=== PATIENT | male | born 1995 | race African-American/Black ===

== ENCOUNTER 2019-01-14 18:31 | Emergency (ER) | payer BC ==
[~2019-01-14] VITALS: Ht 188 cm; Wt 87.1 kg
[2019-01-14] MEDS ORDERED: NKM (18:42)
[2019-01-14 18:50] VITALS: BP 132/79
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
--- NOTE | 2019-01-14 19:15 | NUR ---
ED Nurse Note: Received. Right wrist without deformity; N/V intact distally.
[2019-01-14] MEDS ORDERED: IBUPROFEN600 MG ORAL (19:40)
--- NOTE | 2019-01-14 19:40 | NUR ---
ED Nurse Note: Pre-molded, velcro splint applied to right wrist, by EMT; N/V unchanged.
[2019-01-14 19:47] VITALS: BP 132/79
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
--- NOTE | 2019-01-15 12:35 | Diagnostic Imaging Report ---
Indication: Right wrist pain COMPARISON: None Findings: 3 views of the right wrist were obtained. There is a fracture of the scaphoid waist. This may be a subacute to chronic injury given there is sclerosis at the fracture margin. There is soft tissue swelling. There is abnormal widening of the scapholunate distance and there is dorsal tilting of the lunate on the lateral view. 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
== END 2019-01-14 19:47 | disposition home or self-care (01) ==
LOC: EMR 19:00
DX: M25.531 Pain in right wrist (principal)
CPT/HCPCS: 29125; 99283